=== PATIENT | female | born 1980 | race Caucasian/White ===

== ENCOUNTER 2023-02-17 08:59 | Emergency (ER) | payer OTHER, SELFPAY ==
--- NOTE | 2023-02-17 09:12 | ED.SKABFB ---
HPI - Skin/Abscess/Foreign Bdy General Chief complaint: Skin/Abscess/Foreign Body Stated complaint: cyst on rt shoulder Time Seen by Provider: 02/17/23 09:12 Source: patient Mode of arrival: ambulatory Limitations: no limitations History of Present Illness HPI narrative: Rinse he is a 42-year-old female patient presenting to clinic today with complaints of a possible cyst on her right shoulder. She reports this popped up 3 days ago. She attempted to try to drain it today day and yesterday and got some clear fluid out of it. Reports that it is red and swollen and painful at this time. No known fever or chills. Related Data Home Medications Medication Instructions Recorded Confirmed norgestimate-ethinyl estradiol 1 tablet PO DAILY 02/17/23 02/17/23 0.18 mg/0.215mg/0.25mg-35 mcg(28)tablet (Tri-Sprintec (28)) Allergies Allergy/AdvReac Type Severity Reaction Status Date / Time SEASONAL ALLERGENS AdvReac Unknown CONGESTION Uncoded 02/17/23 09:38 Review of Systems Review of Systems: Pertinent positives per HPI. Patient denies any fever, chills, rash, headache, visual changes, dizziness, cough, runny nose, sore throat, shortness of breath, chest pain, palpitations, nausea, vomiting, diarrhea, constipation, abdominal pain, or any urinary issues. PMFSH Social History Social History Smoking status: Never smoker Alcohol intake: never Comments At the time of my signature, I reviewed and agree with the nursing past medical, surgical, social, and family history. There is no relevant family history pertinent to the patient complaint. Exam Narrative: General: Well-developed, well nourished, in no apparent distress Head: Normocephalic, atraumatic. Cardio: Regular rate and rhythm, s1 and s2 normal, no murmur appreciated. Resp: Clear to auscultation bilaterally, no rhonchi, rales, wheezing or rubs. Integumentary: [place], warm, and dry, 2.5cm x2 cm indurated tender red cyst with mild fluctuance to the anterior right shoulder Course Course Emergency Course: Portions of this record may have been created with voice recognition software. Level of Care: Express Care Visit Vital Signs Vital signs: Vital signs reviewed MDM - Skin/Abscess/Foreign Bdy MDM Narrative Medical decision making narrative: At the time of visit patient is resting comfortably on the exam table. I suspect patient has an infected cyst to her right anterior shoulder. Resting benefits of incision and drainage was discussed with the patient she declines to have this done at this time. Patient would like to receive some antibiotics and see if it will go way . Reports that she had 1 of these several years ago and was given antibiotics and it went away on its own. Will place patient on Bactrim DS. Supportive measures were discussed with the patient she voiced understanding discharge instructions agrees to treatment plan. Differential Diagnosis Differential diagnosis: Likely abscess of skin or subcutaneous tissue, cellulitis, insect bites and other (Sebaceous cyst) Discharge Plan Discharge Clinical Impression: Infected cyst of shoulder Patient Disposition: Home, Self-Care Condition: Stable Instructions: Antibiotic Form, Cyst (ED) Additional Instructions: Declined incision and drainage today Start Bactrim ds 1 tablet every 12 hours times 10 days May apply warm compresses to the affected area to try to bring it to head and drain it May take Tylenol/Motrin as needed for pain Increase fluids and stay well hydrated Follow-up with your PCP in 3-5 days if symptoms persist or sooner if they worsen Go to the emergency room if you develop high fever not controlled by Tylenol/Motrin, increasing redness or swelling, confusion, weakness, lethargy, abdominal pain, chest pain, or shortness of breath Prescriptions: New sulfamethoxazole-trimethoprim [Bactrim DS] [id number]
[2023-02-17 09:28] VITALS: BP 104/74; PULSE 60; RESP 18; TEMP 36.5; O2SAT 100
== END 2023-02-17 09:43 | disposition home or self-care (01) ==
LOC: EXPTROY 09:22
PROVIDERS: Emergency Provider Nurse Practitioner Family
DX: L72.9 Follicular cyst of the skin and subcutaneous tissue, unspecified (principal)
CPT/HCPCS: 99213; G0463

== ENCOUNTER 2025-01-16 14:23 | Outpatient (CLI) | payer OTHER, SELFPAY ==
--- NOTE | ~2025-01-16 | MM_ITS ---
EXAMINATION: MM screening shubham BI w stephie HISTORY: Screening TECHNIQUE: Craniocaudal and mediolateral oblique 3-D tomosynthesis images were obtained and synthetic 2-D images were generated. CAD analysis was submitted and interpreted. COMPARISON: No prior mammogram is available for comparison at this institution. BREAST PARENCHYMAL COMPOSITION: Dense: The breasts are extremely dense, which lowers the sensitivity of mammography. FINDINGS: There are focal asymmetries posterior to the nipple on CC view, middle third. There is no mammographic evidence for malignancy in the left breast. IMPRESSION: 1. Right breast asymmetries posterior to the nipple on the CC view, middle third. 2. Additional mammographic views and possible breast ultrasound are recommended. BI-RADS Category 0: Incomplete: Needs additional imaging evaluation. Reviewed, dictated and finalized at location A. IMPRESSION: 1. Right breast asymmetries posterior to the nipple on the CC view, middle thir d. 2. Additional mammographic views and possible breast ultrasound are recommended . BI-RADS Category 0: Incomplete: Needs additional imaging evaluation.
--- OUTSIDE RECORDS SUMMARY | 2025-01-16 14:32 | XMS_ITS | Data Portability ---
Author Organization [facility] [place] Address [address] [place] [address] [address] [place] [address] Care Team Providers Care Dipper And Drier Name Role Phone DERIAN DALY Primary Care Provider Assessment Encounter Date Assessment Date Assessment LastModified by Organization Details LastModified Time 12/11/2021 12/11/2021 Annual gynecological exam performed. Patient will come back in a year unless there are new symptoms. Not available 12/11/2021 11:54:25 02/04/2023 02/04/2023 Annual gynecological exam performed. Patient will come back in a year unless there are new symptoms. [email or web address] Not available 02/04/2023 13:58:14 10/08/2024 10/08/2024 Annual gynecological exam performed. Patient will come back in a year unless there are new symptoms. [email or web address] Not available 10/06/2024 09:23:09 Plan of Treatment Reminders Order Date Submit Date Provider Last Modified By Organization Details Last Modified Time Details Appointments None recorded . Lab urinalys is, dipstick 2023 024 [email or web address] [place], [address], [place], [address], 17:21:08 Referral None recorded . Procedures None recorded . Surgeries None recorded . Imaging MAMMO, screenin g, digital, bilatera l 2024 025 [facility], [address], [address], [place], [address], 5 04:03:25 MAMMO, screenin g, bilatera l 2022 023 [email or web address] [place] [address], [address] [address], [place], [address], 3 14:40:12 Medication Orders Metrogel Vaginal 0.75 % (37.5 mg/5 gram) [address] [facility] #[id number], [address] [facility], [place], [place], [id number], 5 09:24:09 Tri-Spri ntec (28) 0.18 mg(7)/0. 215 mg(7)/0. 25 mg(7)-0. 035 mg tablet [id number] [facility]10175, [address] [place], [place], [id number], 5 14:31:39 fluconaz ole 150 mg tablet 2021 022 [facility] #98018, [address] [place], [place], [id number], 3 13:58:48 nystatin -triamci nolone 100,000 unit/gra m-0.1 % topical ointment 2021 022 [facility] #75274, [address] [place], [place], [id number], 3 13:58:50 Tri-Prev ifem (28) 0.18 mg(7)/0. 215 mg(7)/0. 25 mg(7)-35 mcg tablet [email or web address] [facility]05615, [address] [facility], [place], [place], [id number], 5 14:31:39 Patient TargetsNo targets recorded. Patient InstructionsNo instructions recorded. Reason for Referral None Reported. Results Created Date Observation Date Name Description Value Unit Range Abnormal Flag Note LastModifiedBy Organization Detail LastModifiedTime 12/12/19 22 12/11/2021 IMAGE GUIDE D PAP AND HPV REGAR DLESS image guided Pap, HPV regardless of Pap result SEE RESULT S BELOW abnormal CASE REPOR T: Cytol ogy Gynec ologi tova Repor t Case: [id number] Autho henry g Provi andi: Jered Duong MD Colle cted: 12/11 1314 Order ing Locat ion: [place] Patho logy Recei len: 12/12 0026 First Scree n: Kathrin yo, Dev ed, CT Patho logis t: Jeffry Nash MD Speci men: Scree bere Pap - Image d, Cervi x STATE MENT OF ADEQU ACY: Satis facto ry for evalu ation Trans forma tion zone compo nent prese nt FINAL DIAGN OSIS: Epith elial Cell Abnor malit y, Squam ous Cell: Atypi tova Squam ous Cells of Undet ermin ed Heleni verena ce (ASC- [place]). Elect ezequiel lucero by Jeffry Nash MD on 2021 at 1:57 PM ----- ----- ----- ----- ----- ----- ----- ----- ----- ----- ----- ----- ----- ----- ----- ----- ----- ---- HPV RESUL TS: HPV mRNA E6/E7 : No HPV mRNA Detec gaurav NOTE: This high risk HPV mRNA assay detec ts fourt een high- risk HPV types (16, 18, 31, 33, 35, 39, 45, 51, 52, 56, 58, 59, 66, 68) witho ut diffe renti ation . COMME NT: Note: This speci men was revie wed by a Cytot echno logis t and/o r Patho logis t (as indic ated in this repor t) after evalu ation using the Thinp rep Imagi ng Syste m. CLINI TOVA INFOR MATIO N: Menst rual Statu s: LMP (if appli cable ): Clini tova Histo ry/Pr eviou s Pap: Type of Neopl jerome (if appli cable ): Signi fican t Clini tova Findi ngs: Other Histo ry: Hormo mathieu (if appli cable ): SUGGE STED FOLLO W-UP: Follo w up as warra nted, based on curre nt guide lines and indiv idual patie nt consi derat ions. Not Available [facility] (Lab) [address], [place], [address], 12/21/2021 14:59:57 04/27/20 22 04/27/2022 CT/GC AND TRICH OMONA S VAGIN BAILEY (RRNA ), SWAB chlamydia trachomatis, PCR Negati ve negati ve Not Available [facility] [address] [place] [address], [id number], 05/03/2022 18:27:56 04/27/20 22 04/27/2022 CT/GC AND TRICH OMONA S VAGIN BAILEY (RRNA ), SWAB neisseria gonorrhoeae, PCR Negati ve negati ve Not Available [facility] [address] [place] [address], [id number], 05/03/2022 18:27:56 04/27/20 22 04/27/2022 CT/GC AND TRICH OMONA S VAGIN BAILEY (RRNA ), SWAB trichomonas vaginalis ribosomal RNA (rrna) Negati ve negati ve Not Available [facility] [address] [place] [address], [id number], 05/03/2022 18:27:56 04/27/20 22 04/27/2022 VAGIN ITIS/ VAGIN OSIS, DNA PROBE kalpana sp. detection, direct probe Negati ve negati ve Not Available [facility] [address] [place] [address], [id number], 05/03/2022 18:27:57 04/27/20 22 04/27/2022 VAGIN ITIS/ VAGIN OSIS, DNA PROBE gardnerella vag. detection, direct probe Negati ve negati ve Not Available [facility] [address] [place] [address], [id number], 05/03/2022 18:27:57 04/27/20 22 04/27/2022 VAGIN ITIS/ VAGIN OSIS, DNA PROBE trichomonas vag. detection, direct probe Negati ve negati ve Not Available [facility] [address] [place] [address], [id number], 05/03/2022 18:27:57 04/27/20 22 04/27/2022 CULTU RE: HERPE S SIMPL EX VIRUS (HSV) , REFLE X TYPIN G source SWAB Not Available [facility] [address] [place] [address], [id number], 05/03/2022 18:27:57 04/27/20 22 04/27/2022 CULTU RE: HERPE S SIMPL EX VIRUS (HSV) , REFLE X TYPIN G hsv culture, body fluid NOT ISOLAT ED REFER ENCE RANGE : NOT ISOLA GAURAV right labia major a Perfo rming Organ izati on Infor matio n: Site ID: [id number] Name: [facility]Justino hols [facility] , Addre ss: [id number] [place] [address] Direc tor: Rhea lundy MD,Ph D,FER Not Available [facility] [address] [place] [address], [id number], 05/03/2022 18:27:57 02/05/20 23 02/04/2023 IMAGE GUIDE D PAP AND HPV REGAR DLESS image guided Pap, HPV regardless of Pap result SEE RESULT S BELOW CASE REPOR T: Cytol ogy Gynec ologi tova Repor t Case: [id number] Autho henry brown Provi andi: Arlene Pitts, CANINE SERVICE INSTRUCTOR TRAINER Colle cted: 02/04 1453 Order ing Locat ion: [place] Patho logy Recei len: 02/08 0820 First Scree n: Magali Thompson Rescr een: Rachelle Ovalles, CT Speci men: Linsey blackburn Pap - Image d, Cervi x STATE MENT OF ADEQU ACY: Satis facto ry for evalu ation Trans forma tion zone compo nent prese nt FINAL DIAGN OSIS: Negat al for Intra epith elial Lesio n or Anayeli bennett (NIL) . Elect ezequiel [facility] d by Rachelle Ovalles, CT on 2022 at 8:42 AM ----- ----- ----- ----- ----- ----- ----- ----- ----- ----- ----- ----- ----- ----- ----- ----- ----- ---- HPV RESUL TS: HPV mRNA E6/E7 : No HPV mRNA Detec gaurav NOTE: This high risk HPV mRNA assay detec ts fourt een high- risk HPV types (16, 18, 31, 33, 35, 39, 45, 51, 52, 56, 58, 59, 66, 68) witho ut diffe renti ation . COMME NT: This speci men was revie wed by a Cytot echno logis t and/o r Patho logis t (as indic ated in this repor t) after evalu ation using the Thinp rep Imagi ng Syste m. CLINI TOVA INFOR MATIO N: Menst rual Statu s: LMP (if appli cable ): Clini tova Histo ry/Pr eviou s Pap: Type of Neopl jerome (if appli cable ): Signi fican t Clini tova Findi ngs: Other Histo ry: Hormo mathieu (if appli cable ): PAP EDUCA JULIO L NOTE: The Pap Test is a scree bere test with an inher ent false negat al rate. Liqui d-bas ed sampl ing may decre ase, but will not elimi tash, false negat al resul ts. A negat al resul t does not precl ude the prese nce and/o r devel opmen t of disea se, since the prese nce of abnor mal cells in the sampl e depen ds on the locat ion of the lesio n and sampl ing techn ique. Ashu nued regul ar scree bere is the best metho d of cance r preve ntion . If repor gaurav cytol ogic findi ng do not corre late with physi tova and/o r histo rical findi ngs, furth er inves tigat ion is recom eleanor d, as clini feng warrezio nted. Not Available [facility] (Lab) [address], [place], [address], 02/09/2023 09:45:44 02/05/20 23 02/04/2023 TRICH OMONA S VAGIN BAILEY (RRNA ) trichomonas vaginalis ribosomal RNA (rrna) Negati ve negati ve Not Available [facility] ([facility]) [address] [place], [address], 02/09/2023 09:45:44 02/05/20 23 02/04/2023 CT/GC (TOSIN) , THINP REP VIAL chlamydia trachomatis, PCR Negati ve negati ve Not Available [facility] (Lab) [address] [place], [address], 02/09/2023 09:45:45 02/05/20 23 02/04/2023 CT/GC (TOSIN) , THINP REP VIAL neisseria gonorrhoeae, PCR Negati ve negati ve Not Available [facility] (Lab) [address], [place], [address], 02/09/2023 09:45:45 03/06/20 24 03/06/2024 urina lysis , dipst ick pH 7 Not Available [place] [address], [place], [address], 03/06/2024 17:20:49 03/06/20 24 03/06/2024 urina lysis , dipst ick Specific [place] 1.000 Not Available [facility] [address], [place], [address], 03/06/2024 17:20:49 Result Notes None recorded. Problems Name Problem SNOMED Code Status Onset Date Resolution Date Notes Provider Name and Address Organization Details Recorded Time SNOMED CT Concept Completed 201711/19/2020 Encntr for sow manager exam (general) (routine) w/o abn findings; Recorded Elsewhere : No Locati on: [facility] So urce: EHR Chron ic: N Practic e ID: 0001 Bill able Time: 02:30:00 PM Melaniahelen Chun [facility] 16:48:21 Speciali zed medical examinat ion Completed 201411/19/2020 Gynecolog ical Examinati on;Record ed Elsewhere : No Locati on: [facility] So urce: EHR Chron ic: N Practic e ID: 0001 Bill able Time: 09:30:00 AM Melaniahelen Chun [facility] 16:48:[address] Concept Completed 201711/19/2020 Encntr for general adult medical exam w/o abnormal findings; Recorded Elsewhere : No Locati on: [facility] So urce: EHR Chron ic: N Practic e ID: 0001 Bill able Time: 02:30:00 PM Melania Chun [facility] 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 16:48:44 Primigra kaley [id number] Completed 201011/19/2020 Supervisi on of normal first ;Recorded Elsewhere : No Locati on: [facility] So urce: EHR Chron ic: N Practic e ID: 0001 Bill able Time: 10:15:00 AM Melania mora [facility] 16:48:31 Pregnanc y test negative [id number] Completed 201411/19/2020 examinati on or test, negative result;Re corded Elsewhere : No Locati on: [facility] So urce: EHR Chron ic: N Practic e ID: 0001 Bill able Time: 09:30:00 AM Melania mora [facility] 16:48:36 Postpart um care Completed 201111/19/2020 Routine postpartu m follow-up ;Recorded Elsewhere : No Locati on: [facility] So urce: EHR Chron ic: N Practic e ID: 0001 Bill able Time: 10:00:00 AM Melania mora [facility] 16:48:39 Malaise and fatigue [id number] Completed 201011/19/2020 Fatigue And Malaise;P [facility] ID: 0001 [facility] 16:48:47 Pregnanc y test positive [id number] Completed 201011/19/2020 Positive Test;Prac alfonso ID: 0001 [facility] 16:48:34 Screenin g for malignan t neoplasm of cervix Completed 201011/19/2020 Pap Smear;Pra ctice ID: 0001 Melaniahelen Chun [facility] 16:48:29 Single live from fazal patterson y [id number] Completed 201111/19/2020 Mother with single liveborn; Practice ID: 0001 Melaniahelen Chun [facility] 16:48:26 Poor growth affectin g manageme nt [id number] Completed 201111/19/2020 GROWTH POOR SGA;Pract ice ID: 0001 Melania [facility] 16:48:42 Vaginiti s and vulvovag initis Completed 201111/19/2020 Vaginitis and vulvovagi nitis, unspecifi ed;Practi ce ID: 0001 Melania [facility] 16:48:16 Problem Notes None recorded. Procedures Surgical History Date Name Laterality Status Provider Name and Address Organization Details Recorded Time 02/05/20 23 Date of Last Pap Smear completed Marianne Sharpe [facility] 10/06/2024 09:24:20 12/16/19 21 Colposcopy completed Josh Duong MD [address], [place], [address], [facility] 12/15/2020 21:40:44 12/16/19 21 Colposcopy completed [facility] 12/10/2021 22:59:33 12/16/19 21 Colposcopy completed [facility] 12/10/2021 23:00:48 Imaging Results None recorded. Procedure Notes None recorded. Medical Equipment None Reported. Allergies No known drug allergies Medications Name Sig Start Date Stop Date Status Note LastModified by Organization Details LastModified Time dicloxaci llin 500 mg capsule take 1 capsule (500MG) by oral route every 6 hours 1 hour before a meal or 2 hours after a meal 05/12 completed Prescrib ed Elsewher e: No Locat ion: Aylinsola aurea [facility] odify By: marisela Sparrow [facility] DateTime : 03/30/20 11:38:01 AM Not Available Not Available Not Available fluconazo le 150 mg tablet Take 1 tablet by mouth now, repeat in 7 days if symptoms persist 02/04 completed Not Available Not Available Not Available ampicilli n 500 mg capsule take 1 capsule by oral route every 12 hours 1/2 hour before a meal or 2 hours after a meal 10/19 completed Prescrib ed Elsewher e: No Locat ion: Susie villar [facility] odify By: seb Raymundoo unter DateTime : 08/16/20 08:20:43 AM Not Available Not Available Not Available metronida zole 0.75 % (37.5 mg/5 gram) vaginal gel INSERT 1 APPLICAT ORFUL VAGINALL Y EVERY DAY AT BEDTIME FOR 5 DAYS 10/06 completed Not Available Not Available Not Available penicilli n V potassium 500 mg tablet take 1 tablet by oral route 4 times a day spacing doses apart for 10 days 10/19 completed Prescrib ed Elsewher e: No Locat ion: Susie aurea [facility] odify By: seb Raymundoo unter DateTime : 07/03/20 01:21:21 PM Not Available Not Available Not Available metronida zole 500 mg tablet TAKE 1 TABLET BY MOUTH EVERY 12 HOURS FOR 7 DAYS 10/06 completed Not Available Not Available Not Available ciproflox acin 500 mg tablet TAKE 1 TABLET BY MOUTH EVERY 12 HOURS 12/11 completed Not Available Not Available Not Available sulfameth oxazole 800 mg-trimet hoprim 160 mg tablet TAKE 1 TABLET BY MOUTH EVERY 12 HOURS FOR 10 DAYS 10/06 completed Not Available Not Available Not Available amoxicill in 500 mg tablet take 1 tablet by oral route 3 times every day 11/27 completed Prescrib ed Elsewher e: No Locat ion: Susie villar [facility] odify By: sri to DateTime : 12/19/19 03:33:53 PM Not Available Not Available Not Available Macrobid 100 mg capsule take 1 capsule by oral route with intercou rse prn 10/19 completed Prescrib ed Elsewher e: No Locat ion: Susie villar [facility] odify By: seb Raymundoo unter DateTime : 08/07/20 19 09:30:00 AM Not Available Not Available Not Available Vitamin tablet take 1 tablet by oral route every day 12/07 completed Prescrib ed Elsewher e: No Locat ion: [facility] odify By: papi Encount er DateTime : 05/10/20 11 10:00:00 AM Not Available Not Available Not Available nystatin- triamcino lone 100,000 unit/gram -0.1 % topical ointment APPLY TO THE AFFECTED AREA(S) BY TOPICAL ROUTE 2 TIMES PER DAY FOR 7 DAYS 02/04 completed Not Available Not Available Not Available Duricef 500 mg capsule take 2 capsule (1G) by oral route every day 03/08 completed Prescrib ed Elsewher e: No Locat ion: Susie villar [facility] odify By: checo to DateTime : 12/16/19 12 11:15:00 AM Not Available Not Available Not Available Cleocin 2 % vaginal cream insert 1 applicat orful (100MG) by vaginal route every day at bedtime 03/08 completed Prescrib ed Elsewher e: No Locat ion: Susie villar [facility] odify By: checo to DateTime : 02/28/20 12 11:46:04 AM Not Available Not Available Not Available levofloxa pili 500 mg tablet take 1 tablet by oral route every 24 hours 11/19 completed Prescrib ed Elsewher e: No Locat ion: Susie [facility] odify By: jael Encount er DateTime : 10/24/19 20 10:06:38 AM Not Available Not Available Not Available Diflucan 200 mg tablet take 1 tablet by oral route on days 1, 4, and 7 11/19 completed Prescrib ed Elsewher e: No Locat ion: Susie villar [facility] odify By: jael Sharmat er DateTime : 10/24/19 20 10:06:38 AM Not Available Not Available Not Available Cephadyn 50 mg-650 mg tablet take 1 tablet by oral route every 4 hours as needed not to exceed 4 tablets per 24hrs 03/08 completed Prescrib ed Elsewher e: Yes Loca tion: Susie villar [facility] odify By: checo Villar ncounter DateTime : 12/24/19 12 10:00:00 AM Not Available Not Available Not Available Tri-Sprin nico (28) 0.18 mg(7)/0.2 15 mg(7)/0.2 5 mg(7)-0.0 35 mg tablet TAKE 1 TABLET BY MOUTH DAILY 10/08 completed Not Available Not Available Not Available Lo Loestrin Fe 1 mg-10 mcg (24)/10 mcg (2) tablet take 1 tablet by oral route every day 11/27 completed Prescrib ed Elsewher e: No Locat ion: Mary Grace aurea [facility] odify By: sara Son nter DateTime : 11/22/19 19 09:22:30 AM Not Available Not Available Not Available INDEPENDENT LIVING SPECIALIST-PNV-DH A 28 mg iron-1 mg-200 mg capsule take 1 capsule by oral route every day 12/07 completed Prescrib ed Elsewher e: No Locat ion: Susie villar [facility] odify By: papi Encount er DateTime : 12/07/19 13 11:30:56 AM Not Available Not Available Not Available Microgest in 24 FE 1 mg-20 mcg (24)/75 mg (4) tablet take 1 tablet by oral route every day 11/27 completed Prescrib ed Elsewher e: No Locat ion: Susie villar [facility] odify By: marybeth martin DateTime : 11/28/19 19 11:30:00 AM Not Available Not Available Not Available Vitals Date Recorded Body height Body mass index (BMI) Body weight Systolic blood pressure Diastolic blood pressure Provider Name and Address Organization Details Last Updated DateTime 12/11/2021 154.94 cm 23.4 kg/m2 79337.45 g 114 mm[Hg] 75 mm[Hg] Melania Chnu [facility] 2 12:01:37 Date Recorded Body height Body mass index (BMI) Body weight Systolic blood pressure Diastolic blood pressure Provider Name and Address Organization Details Last Updated DateTime 04/27/2022 154.94 cm 23.5 kg/m2 10300.17 g 109 mm[Hg] 72 mm[Hg] Genie Santos [facility] 2 17:14:20 Date Recorded Body height Body mass index (BMI) Body weight Systolic blood pressure Diastolic blood pressure Provider Name and Address Organization Details Last Updated DateTime 02/04/2023 154.94 cm 23.7 kg/m2 69005.48 g 108 mm[Hg] 64 mm[Hg] Genie Santos [facility] 3 13:58:34 Date Recorded Body weight Systolic blood pressure Diastolic blood pressure Provider Name and Address Organization Details Last Updated DateTime 10/08/2024 62459.26 g 121 mm[Hg] 78 mm[Hg] Marianne Sharpe [facility] 10/08/2024 14:31:26 Social History Question Answer Notes LastModified by Organizat ion Details LastModified Time Tobacco Smoking Status Never Smoker Genie Santos [facility] 02/04/2023 13:58:41 Do You Have An Advance Directive? No Information n ot available 11/19/2020 What Is Your Level Of Alcohol Consumption? Occasional Information not available 11/19/2020 How Many Years Have You Consumed Alcohol? 5 Information not available 11/19/2020 Are You Blind Or Do You Have Difficulty Seeing? No Information n ot available 11/19/2020 What Is Your Level Of Caffeine Consumption? Moderate Information not available 02/04/2023 How Much Tobacco Do You Chew? None Information not available 11/19/2020 In The 14 Days Before Symptom Onset, Have You Had Close Contact With A Laboratory-confirm ed COVID-19 While That Case Was Ill? No Information n ot available 11/19/2020 In The 14 Days Before Symptom Onset, Have You Had Close Contact With A Person Who Is Under Investigation For COVID-19 While That Person Was Ill? No Information not available 11/19/2020 Have You Been To An Area Known To Be High Risk For COVID-19? No Information not available 11/19/2020 Are You Deaf Or Do You Have Serious Difficulty Hearing? No Information not available 11/19/2020 What Type Of Diet Are You Following? REGULAR Information n ot available 11/19/2020 What Is The Highest Grade Or Level Of School You Have Completed Or The Highest Degree You Have Received? 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 No Information not available 11/19/2020 Do You Use Protection During Sex? Usually Information not available 11/19/2020 Do You Use Your Seat Belt Or Car Seat Routinely? Yes Information not available 11/19/2020 Do You Have Smoke And Carbon Monoxide Detectors In Your Home? Yes Information not available 11/19/2020 How Much Tobacco Do You Smoke? No Information not available 11/19/2020 Do You Feel Stressed (tense, Restless, Nervous, Or Anxious, Or Unable To Sleep At Night)? [id number] Information not available 11/19/2020 Do You Use Any Illicit Or Recreational Drugs? No Information not available 11/19/2020 Do You Use Sunscreen Routinely? Yes Information not available 11/19/2020 How Many Years Have You Smoked Tobacco? 0 Information not available 11/19/2020 Have You Used IV Drugs? No Information not available 11/19/2020 Sex: Unknown Functional Status Question Answer Note LastModified by Organizat ion Details LastModified Time Do you have difficulty walking or climbing stairs? No Information not available 02/04/2023 Are you able to walk? YESWOREST Information not available 11/19/2020 Are you able to care for yourself? Yes Information not available 02/04/2023 Do you have difficulty dressing or bathing? No Information not available 02/04/2023 What is your exercise level? Occasional Information not available 11/19/2020 Mental Status None recorded. Family History Relationship Description Onset Age of this Age Resolved Age Notes LastModified by Organization Details LastModified Time Mother Asthma [email or web address] Not available 02/04/2023 13:47:34 Unspecified Relation Malignant tumor of breast Not available 2020 16:47:39 Maternal Grandfather Malignant neoplasm of lung Not available 2020 18:49:54 Maternal Grandmother Malignant neoplasm of lung Not available 2020 18:50:12 Maternal Grandmother Malignant neoplasm of liver [email or web address] Not available 2024 14:26:11 Father Neoplasm of brain Not available 2024 14:33:59 Father Leukemia [email or web address] Not availabl e 10/08/2024 14:34:14 Medical History Condition Response History of abnormal pap Y Gynecological History Statement/Question Response Flow Light Date of LMP 09/16/2024 N Was last menstrual period normal Y STIs/STDs Y Date of control 11/10/2020 BCPs Desired Control Method BCPs Abnormal Pap Yes On BCP's at Conception? N HPV Vaccine Y Colposcopy 12/15/2020 Duration of Flow (days) 5 Current Control Method BCPs Age at First Child 32 Frequency of Cycle (Q days) 32 Sexually Active? Y Menses Monthly Y Age of first menstrual cycle 13 Date of Last Pap Smear 02/04/2023 Sexual Problems? N LMP Definite N Obstetrics History GPAL:G 1 P 1 0 0 1 Type Value Full Term 1 Living 1 Total 1 Past Encounters Encounter ID Performer Location Encounter Start Date Encounter Closed Date Diagnosis/Indication Diagnosis SNOMED-CT Code Diagnosis ICD10 Code Diagnosis Note [id number] Josh Duong MD [facility] [address],[place] [address] 11/19/2020 16:26:47 11/20/2020 09:03:35 Gynecologic examination [id number] Z01.419 This patient is here for her annual exam. A thorough history was taken. A physical exam was performed. Age appropriat e routine health screening was ordered, performed, and discussed. Recommende d testing was ordered. She was asked to follow up in one year. She will be informed of any test results. [id number] Josh Duong MD [facility] [address],[place] [address] 12/15/2020 14:47:10 12/16/2020 00:14:48 Screening procedure [id number] Z13.9 Dysplasia of cervix 7339 1008 N87.9 colposcopy completed, aceto-whit e area, small, biopsied [id number] Josh Duong MD [facility] [address],[place] [address] 12/11/2021 11:51:21 12/11/2021 12:23:29 Gynecologic examination [id number] Z01.419 This patient is here for her annual exam. A thorough history was taken. A physical exam was performed. Age appropriat e routine health screening was ordered, performed, and discussed. Recommende d testing was ordered. She was asked to follow up in one year. She will be informed of any test results. Declined any lab testing today. Has history LGSIL/ PILI 1 Contracept ion care management [id number] Z30.9 [id number] Josh Duong MD [facility] [address],[place] [address] 05/20/2021 17:22:41 05/21/2021 10:46:36 Urinary tract infectious disease 40598145 N39.0 [id number] MARGARET Vuong [facility] [address],[place] [address] 04/27/2022 17:00:23 05/03/2022 16:42:20 Vaginitis 49639534 N76.0 Suspect yeast on examVagini tis panel sentVulvar care guidelines discussed in-depth-s leep with no underwear, cotton underwear only-avoid all vaginal washes/pro ducts, only water/fing ers to cleanse the vulva-Free and clear laundry products-a void shaving and waxing Rx for yeastRTC if symptoms persist Time spent in visit is a total of 35 mins with at least 50% of visit consisting of counseling and review of plan of care.We spent an extensive amount of time discussing vulvar care guidelines Lesion of vulva [id number] 6 N90.89 suspect irritation from scratching [id number] MARGARET Chaudhary-[facility] [address] [address] 02/04/2023 13:47:31 02/04/2023 14:40:11 Gynecologic examination 10045620 Z01.419 Suggested Calcium with Vitamin D 1200-1500m g daily. Patient advised to get an annual flu shot in the fall and she could obtain at [facility] or [facility]. Also to obtain TDap vaccinatio n if you have not had one in the last 10 years. Recommend yearly mammograms . Encouraged monthly self breast exams. Encourage safe sexual practices, to use condoms and limit partners if not already in a monogamous relationsh ip. Engage in daily exercise of low impact aerobic exercise 45-60 minutes 4-5 times weekly. Avoid tobacco and illicit drugs as well as using moderation with alcohol intake less than 1-2 8 oz beverages daily. This lifestyle behavior pattern will lead to less health conditions and longer life span. If BMI greater than 25 weight watchers or dietary consult advised. All questions have been answered. Patient appears to understand informatio n, but if you have any questions please call or respond to this email. Pap/hpv sentSTD Screen sentGeneti c Screen discussedC olon Screen naDexa Screen naRoutine Labs PCPMammo ordered Screening mammography 24 376058 Z12.31 Contracept ion care management 235303551 Z30.9 RF sent x 1yrSpouse considerin g vasectomyP atient considerin g tubal ligationWi ll call if interested in consult [id number] JAY TORRES MD [facility] [address] [address] 03/06/2024 16:56:21 03/06/2024 17:21:39 Vaginitis 48219320 N76.0 Urinary symptoms 3806912 08 R39.9 [id number] Josh Duong MD [facility] [address] [address] 10/08/2024 14:24:11 10/08/2024 15:34:22 Gynecologic examination 10088639 Z01.419 Annual gynecologi tova exam performed. Patient will come back in a year unless there are new symptoms. Suggest Calcium with Vitamin D if not eating in diet. Patient advised to get annual flu shot. Recommend yearly physicals and perform monthly breast exams. Genetic testing is available for patients with family history of cancer. Engage in safe sexual practices, use condoms. Encouraged to have daily exercise. Avoid tobacco and illicit drugs, moderation of alcohol. If BMI greater than 25 dietary consult advised. If you have any questions please call or email. mammogram- DUE for 1st mammogram; order given, pt to schedule colon cancer screening - n/a DEXA scan- n/a Pap smear- UTD (2022 - WN), will repeat in 2025 per ASCCP guidelines laboratory evaluation - declined STI testing - declined Pt declined - had vasectomy Screening mammography 24 241688 Z12.31 Health Concerns Section Related Observation LastModified by Organization Detai ls LastModified Time None Recorded Concern Status LastModified by Organization Details LastModified Time None Recorded Advance Directives Directive N: Payers Encounter Date Sequence Insurance Name Policy Number Policy Ledbetter Covered Member ID Ledbetter Member ID Guarantor Name 12/11/2021 1 [place] [id number] David Jeffrey [id number] Siomara Jeffrey 04/27/2022 1 [place] [id number] David Jeffrey [id number] Siomara Jeffrey 02/04/2023 1 [employer] - CHOICE (POS II) [id number] David Jeffrey [id number] Siomara Jeffrey 03/06/2024 1 [employer] - OPEN ACCESS PLUS [id number] Esvin Jeffrey [id number] Siomara Jeffrey 10/08/2024 1 [facility] [id number] Esvin Jeffrey [id number] Siomara Jeffrey Notes Date Note Type Note Provider Name and Address Organization Details Recorded Time 12/11/2021 text/html Annual GYNReport ed bypatient.History:no gynecologic complaints Menstrual cycle:Normal menses Urinary symptoms:No hematuria; No incontinence Vulva:No genital lesion Vagina:Normal vaginal discharge Breast:No breast pain; No breast lump; No nipple discharge Current Contraception:Oral contraceptives Sexual complaints:No sexual complaints; No pain during intercourse Psychological symptoms:No depression; No anxiety Preventive measures:Encourage self breast examination; Encourage regular exercise Josh Duong MD [address], [place], [address], [facility] 12/11/2021 12:22:55 04/27/2022 text/html Vulvar itching a nd irritation x 1 weekNo vaginal discharge or odorsNo AUB MARGARET Vuong [address], [place], [address], [facility] 05/03/2022 11:53:16 02/04/2023 text/html Annual GYNReport ed bypatient.Menstrual cycle:Normal menses Urinary symptoms:No hematuria; No incontinence Vulva:No genital lesion Vagina:Normal vaginal discharge Breast:No breast pain; No breast lump; No nipple discharge Current Contraception:Satisf ied with current contraception; Oral contraceptives Sexual complaints:No sexual complaints; No pain during intercourse; Normal libido Menopausal Symptoms:No menopausal symptoms; Normal vaginal lubrication Psychological symptoms:No depression; No anxiety; No PMDD Preventive measures:Encourage self breast examination; Encourage regular exercise; Encourage no tobacco use; Encourage regular mammograms starting age 40; History of abnormal pap smear/cervical dysplasia; Needs to schedule mammogram MARGARET Chaudhary- [address], [place], [address], [facility] 02/04/2023 14:26:52 10/08/2024 text/html Annual GYNReport ed bypatient.History:no gynecologic complaints Menstrual cycle:Normal menses Urinary symptoms:No hematuria; No incontinence Vulva:No genital lesion Vagina:Normal vaginal discharge Breast:No breast pain; No breast lump; No nipple discharge Current Contraception:Partne r had vasectomy Sexual complaints:No sexual complaints; No pain during intercourse; Normal libido Menopausal Symptoms:No menopausal symptoms; Normal vaginal lubrication Psychological symptoms:No depression; No anxiety; No PMDD Preventive measures:Encourage self breast examination; Encourage regular exercise; Encourage no tobacco use; Encourage regular mammograms starting age 40 Patient presents for annual well woman exam. Patient denies concerns today. Patient stopped BC pills 4 months ago since had vasectomy. ASHLEY PHILLIPS, [place] [address], [place], [address], [facility] 10/08/2024 15:12:41 OBGyn Episode Ob Episode Information Episode Created Date Number of Fetuses Patient Bloodtype Patient rh Status Prepregnancy Weight lbs Domestic Partner Domestic Partner Phone Father Name Laboratory Scientist Status 11/20/19 21 1 CLOSED Fetus Data First Name Last Name Admitted to NICU Weight (g) Sex Living Outcome Pediatric Complications Fetus ID Race Codes Race Delivery Type 3288.54 2 M Full Term 8400 Vaginal Delivery Simón Calculation Initial Simón Date Initial Exam Date Initial Exam Provider Initial Ultrasound Date Last Menstrual Period Date Ultra Sound Weeks Gestation 0 Eighteen To Twenty Week Simón Update Ultra Sound Date Fundal Height At Umbil Quickening Date Ultra Sound Latest Weeks Gestation Final Simón Confirmed By Final Simón Confirmed Date Final Simón Date Ultra Sound Latest Days Gestation 0 0 Menstrual History Last Menstrual Date Menses Monthly On Bcp Conception Prior Menses Frequency Hcg Plus Date Menarche Onset Age Delivery Information Delivery Date Delivery Type Labor Anesthesia Weeks Gestation Incision Type Labor Labor Length Hrs Delivered By Post Complications Tubal Sterilization Discharge Date Comments 2 38.1 [facility] Discharge Information Feeding Method Contraceptive Method Maternal HG B and HCT Levels
== END 2025-01-16 14:24 | disposition home or self-care (01) ==
LOC: ANHIMG 14:26
PROVIDERS: PCP Family Medicine; Visit Provider Obstetrics & Gynecology
DX: Z12.31 Encounter for screening mammogram for malignant neoplasm of breast (principal); R92.8 Other abnormal and inconclusive findings on diagnostic imaging of breast
CPT/HCPCS: 77063; 77067

== ENCOUNTER 2025-01-28 10:45 | Outpatient (CLI) | payer OTHER, SELFPAY ==
--- OUTSIDE RECORDS SUMMARY | 2025-01-28 11:16 | XMS_ITS | Data Portability ---
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 [email or web address] Not available 10/06/2024 09:23:09 Plan of Treatment Reminders Order Date Submit Date Provider Last Modified By Organization Details Last Modified Time Details Appointments None recorded . Lab urinalys is, dipstick 2023 024 [email or web address] [facility], [address], [place], [address], 17:21:08 Referral None recorded . Procedures None recorded . Surgeries None recorded . Imaging MAMMO, screenin g, digital, bilatera l 2024 025 [facility], [address], [address], [place], [address], 5 21:46:43 MAMMO, screenin g, bilatera l 2022 023 [email or web address] [facility] [address], [address] [address], [place], [address], 14:40:12 Medication Orders Metrogel Vaginal 0.75 % (37.5 mg/5 gram) [address] [facility][id number], [address], [place], [place], [id number], 5 09:24:09 Tri-Spri ntec (28) 0.18 mg(7)/0. 215 mg(7)/0. 25 mg(7)-0. 035 mg tablet [email or web address] [facility] [address] [facility]15665, [address], [place], [id number], 5 14:31:39 fluconaz ole 150 mg tablet 2021 022 [facility] #96824, [address], [place], [id number], 3 13:58:48 nystatin -triamci nolone 100,000 unit/gra m-0.1 % topical ointment 2021 [facility] #91182, [address], [place], [id number], 3 13:58:50 Tri-Prev ifem (28) 0.18 mg(7)/0. 215 mg(7)/0. 25 mg(7)-35 mcg tablet [email or web address] [facility] [address] [facility]87901, [address], [place], [id number], 5 14:31:39 Patient TargetsNo targets recorded. Patient InstructionsNo instructions recorded. Reason for Referral None Reported. Results Created Date Observation Date Name Description Value Unit Range Abnormal Flag Note LastModifiedBy Organization Detail LastModifiedTime 12/12/19 22 12/11/2021 IMAGE GUIDE D PAP AND HPV REGAR DLESS image guided Pap, HPV regardless of Pap result SEE RESULT S BELOW abnormal CASE REPOR T: Cytol ogy Gynec ologi nyla Repor t Case: [id number] Autho henry g Provi andi: Jered Duong MD Colle cted: 12/11 1314 Order ing Locat ion: [place] [facility] Recei len: 12/12 0026 First Scree n: Kathrin ni, Dev ed, CT Patho logis t: Jeffry Nash MD Speci men: Scree bere Pap - Image d, Cervi x STATE MENT OF ADEQU ACY: Satis facto ry for evalu ation Trans forma tion zone compo nent prese nt FINAL DIAGN OSIS: Epith elial Cell Abnor malit y, Squam ous Cell: Atypi nyla Squam ous Cells of Undet ermin ed Heleni verena weaver (ASC- [place]). Elect ezequiel lucero by Jeffry Nash MD on 2021 at 1:57 PM ----- ----- ----- ----- ----- ----- ----- ----- ----- ----- ----- ----- ----- ----- ----- ----- ----- ---- HPV RESUL TS: HPV mRNA E6/E7 : No HPV mRNA Detec lena NOTE: This high risk HPV mRNA assay [...] Thinp rep Imagi ng Syste m. CLINI NYLA INFOR MATIO N: Menst rual Statu s: LMP (if appli cable ): Clini nyla Histo ry/Pr eviou s Pap: Type of Neopl jerome (if appli cable ): Signi fican t Clini nyla Findi ngs: Other Histo ry: Hormo mathieu (if appli cable ): SUGGE STED FOLLO W-UP: Follo w up as warra nted, based on curre nt guide lines and indiv idual patie nt consi derat ions. Not Available [facility] (Lab) [address], [place], [address], 12/21/2021 14:59:57 04/27/20 22 04/27/2022 CT/GC AND TRICH OMONA S VAGIN BAILEY (RRNA ), SWAB chlamydia trachomatis, PCR Negati ve negati ve Not Available [facility] [address] [place] [address], [phone], 05/03/2022 18:27:56 04/27/20 22 04/27/2022 CT/GC AND TRICH OMONA S VAGIN BAILEY (RRNA ), SWAB neisseria gonorrhoeae, PCR Negati ve negati ve Not Available [facility] [address] [place] [address], [phone], 05/03/2022 18:27:56 04/27/20 22 04/27/2022 CT/GC AND TRICH OMONA S VAGIN BAILEY (RRNA ), SWAB trichomonas vaginalis ribosomal RNA (rrna) Negati ve negati ve Not Available [facility] [address] [place] [address], [address], 05/03/2022 18:27:56 04/27/20 22 04/27/2022 VAGIN ITIS/ VAGIN OSIS, DNA PROBE kalpana sp. detection, direct probe Negati ve negati ve Not Available [facility] [address] [place], [address], 05/03/2022 18:27:57 04/27/20 22 04/27/2022 VAGIN ITIS/ VAGIN OSIS, DNA PROBE gardnerella vag. detection, direct probe Negati ve negati ve Not Available [facility] [address] [place], [address], 05/03/2022 18:27:57 04/27/20 22 04/27/2022 VAGIN ITIS/ VAGIN OSIS, DNA PROBE trichomonas vag. detection, direct probe Negati ve negati ve Not Available [facility] [address] [place] [address], [address], 05/03/2022 18:27:57 04/27/20 22 04/27/2022 CULTU RE: HERPE S SIMPL EX VIRUS (HSV) , REFLE X TYPIN G source SWAB Not Available [facility] [address] [place], [address], 05/03/2022 18:27:57 04/27/20 22 04/27/2022 CULTU RE: HERPE S SIMPL EX VIRUS (HSV) , REFLE X TYPIN G hsv culture, body fluid NOT ISOLAT ED REFER ENCE RANGE : NOT ISOLA LENA right labia major a Perfo rming Organ izati on Infor matio n: Site ID: [id number] Name: [facility]Justino hols [facility] , Addre ss: [address] [place] [address] Direc tor: Rhea lundy MD,Ph D,FER Not Available [facility] [address] [place] [address], [address], 05/03/2022 18:27:57 02/05/20 23 02/04/2023 IMAGE GUIDE D PAP AND HPV REGAR DLESS image guided Pap, HPV regardless of Pap result SEE RESULT S BELOW CASE REPOR T: Cytol ogy Gynec ologi nyla Repor t Case: [id number] Autho henry brown Provi andi: Arlene Pitts, WAYNE Colle cted: 02/04 1453 Order ing Locat [...] mRNA E6/E7 : No HPV mRNA Detec lena NOTE: This high risk HPV mRNA assay [...] Thinp rep Imagi ng Syste m. CLINI NYLA INFOR MATIO N: Menst rual Statu s: LMP (if appli cable ): Clini nyla Histo ry/Pr eviou s Pap: Type of Neopl jerome (if appli cable ): Signi fican t Clini nyla Findi ngs: Other Histo ry: Hormo mathieu [...] cance r preve ntion . If repor lena cytol ogic findi ng do not corre late with physi nyla and/o r histo rical findi ngs, furth er inves tigat ion is recom eleanor d, as clini feng warrezio nted. Not Available [facility] (Lab) [address], [place], [address], 02/09/2023 09:45:44 02/05/20 23 02/04/2023 TRICH OMONA S VAGIN BAILEY (RRNA ) trichomonas vaginalis ribosomal RNA (rrna) Negati ve negati ve Not Available [facility] (Lab) [address], [place], [address], 02/09/2023 09:45:44 02/05/20 23 02/04/2023 CT/GC (TOSIN) , THINP REP VIAL chlamydia trachomatis, PCR Negati ve negati ve Not Available [facility] (Lab) [address], [place], [address], 02/09/2023 09:45:45 02/05/20 23 02/04/2023 CT/GC (TOSIN) , THINP REP VIAL neisseria gonorrhoeae, PCR Negati ve negati ve Not Available [facility] (Lab) [address], [place], [address], 02/09/2023 09:45:45 03/06/20 24 03/06/2024 urina lysis , dipst ick pH 7 Not Available [facility] [address], [place], [address], 03/06/2024 17:20:49 03/06/20 24 03/06/2024 urina lysis , dipst ick Specific Maple 1.000 Not Available [facility] [place] [facility] [address], [place], [address], 03/06/2024 17:20:49 01/17/20 25 01/16/2025 MAMMO , scree bere, digit al, bilat eral No observ ation record ed. [email or web address] [facility] [address], [place], [address], 01/18/2025 10:32:28 01/18/20 25 01/16/2025 MAMMO , scree bere, digit al, bilat eral No observ ation record ed. [email or web address] [facility] [address], [place], [address], 01/21/2025 10:54:05 Result Notes None recorded. Problems Name Problem SNOMED Code Status Onset Date Resolution Date Notes Provider Name and Address Organization Details Recorded Time SNOMED CT Concept Completed 201711/19/2020 Encntr for utilization review rn exam (general) (routine) w/o abn findings; Recorded Elsewhere : No Locati on: [facility] So urce: EHR Chron ic: N Practic e ID: 0001 Bill able Time: 02:30:00 PM Melania mora MS - [facility] 16:48:21 Speciali zed medical examinat ion Completed 201411/19/2020 Gynecolog ical Examinati on;Record ed Elsewhere : No Locati on: [facility] So urce: EHR Chron ic: N Practic e ID: 0001 Bill able Time: 09:30:00 AM Melania mora [facility] 16:48:[address] Concept Completed 201711/19/2020 Encntr for general adult medical exam w/o abnormal findings; Recorded Elsewhere : No Locati on: [facility] So urce: EHR Chron ic: N Practic e ID: 0001 Bill able Time: 02:30:00 PM Melania mora [facility] 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 16:48:44 Primigra kaley [id number] Completed 201011/19/2020 Supervisi on of normal first ;Recorded Elsewhere : No Locati on: [facility] So urce: EHR Chron ic: N Practic e ID: 0001 Bill able Time: 10:15:00 AM Melania mora [facility] 16:48:31 Pregnanc y test negative [id number] Completed 201411/19/2020 examinati on or test, negative result;Re corded Elsewhere : No Locati on: [facility] So urce: EHR Chron ic: N Practic e ID: 0001 Bill able Time: 09:30:00 AM Melania mora [facility] 16:48:36 Postpart um care Completed 201111/19/2020 Routine postpartu m follow-up ;Recorded Elsewhere : No Locati on: [facility] So urce: EHR Chron ic: N Practic e ID: 0001 Bill able Time: 10:00:00 AM [facility] 16:48:39 Malaise and fatigue [id number] Completed 201011/19/2020 Fatigue And Malaise;P ractice ID: 0001 [facility] 16:48:47 Pregnanc y test positive [id number] Completed 201011/19/2020 Positive Test;Prac alfonso ID: 0001 Melania Chun [facility] 16:48:34 Screenin g for malignan t neoplasm of cervix Completed 201011/19/2020 Pap Smear;Pra ctice ID: 0001 Melania Chun [facility] 16:48:29 Single live from singleto n pregnanc y [id number] Completed 201111/19/2020 Mother with single liveborn; Practice ID: 0001 Melania Chun [facility] 16:48:26 Poor growth affectin g manageme nt [id number] Completed 201111/19/2020 GROWTH POOR SGA;Pract ice ID: 0001 Melania Chun [facility] 16:48:42 Vaginiti s and vulvovag initis Completed 201111/19/2020 Vaginitis and vulvovagi nitis, unspecifi ed;Practi ce ID: 0001 Melania Chun [facility] 16:48:16 Problem Notes None recorded. Procedures Surgical History Date Name Laterality Status Provider Name and Address Organization Details Recorded Time 02/05/20 23 Date of Last Pap Smear completed Marianne Sharpe [facility] 10/06/2024 09:24:20 12/16/19 21 Colposcopy completed Josh Duong MD [address], [place], [address], [facility] 12/15/2020 21:40:44 12/16/19 21 Colposcopy completed Melania [facility] 12/10/2021 22:59:33 12/16/19 21 Colposcopy completed Melania [facility] 12/10/2021 23:00:48 Imaging Results Imaging Date Name Status LastModified by Organiz ation Details LastModified Time 01/16/2025 MAMMO, screening, digital, bilateral completed [email or web address] [facility] [address], [place], [address], 01/18/2025 10:32:28 01/16/2025 MAMMO, screening, digital, bilateral completed [email or web address] [facility] [address], [place], [address], 01/21/2025 10:54:05 Procedure Notes None recorded. Medical Equipment None [...] ed Elsewher e: No Locat ion: [facility] Tom odify By: marisela Encount er DateTime : 03/30/20 12 11:38:01 AM Not Available Not Available Not [...] Elsewher e: No Locat ion: Susie villar [facility] Tom odify By: seb zhou Enco unter DateTime : 08/16/20 08:20:43 AM Not [...] Prescrib ed Elsewher e: No Locat ion: Ayl[facility]inedumaddie villar [facility] odify By: seb ich Enco unter DateTime : 07/03/20 01:21:21 PM Not [...] Elsewher e: No Locat ion: Susie villar [facility] odify By: sri Villar ncounter DateTime : 12/19/19 15 03:33:53 PM Not Available Not Available Not Available Macrobid 100 mg capsule take 1 capsule by oral route with intercou rse prn 10/19 completed Prescrib ed Elsewher e: No Locat ion: [facility] odify By: seb ich Enco unter DateTime : 08/07/20 19 09:30:00 AM Not Available Not Available Not Available Vitamin tablet take 1 tablet by oral route every day 12/07 completed Prescrib ed Elsewher e: No Locat ion: [facility] odify By: cmedical Encount er DateTime : 05/10/20 11 10:00:00 [...] Prescrib ed Elsewher e: No Locat ion: [facility] odify By: checo to DateTime : 12/16/19 12 11:15:00 AM Not Available Not Available Not Available Cleocin 2 % vaginal cream insert 1 applicat orful (100MG) by vaginal route every day at bedtime 03/08 completed Prescrib ed Elsewher e: No Locat ion: [facility] odify By: checo to DateTime : 02/28/20 12 11:46:04 AM Not Available Not Available Not Available levofloxa pili 500 mg tablet take 1 tablet by oral route every 24 hours 11/19 completed Prescrib ed Elsewher e: No Locat ion: [facility] odify By: jael Carney er DateTime : 10/24/19 10:06:38 AM Not Available Not Available Not Available Diflucan 200 mg tablet take 1 tablet by oral route on days 1, 4, and 7 11/19 completed Prescrib ed Elsewher e: No Locat ion: [facility] odify By: jael Carney er DateTime : 10/24/19 10:06:38 AM Not Available Not Available Not Available Cephadyn 50 mg-650 mg tablet take 1 tablet by oral route every 4 hours as needed not to exceed 4 tablets per 24hrs 03/08 completed Prescrib ed Elsewher e: Yes Loca tion: [facility] odify By: checo to DateTime : 12/24/19 12 10:00:00 AM Not [...] Prescrib ed Elsewher e: No Locat ion: [facility] odify By: erichar tz Encou nter DateTime : 11/22/19 19 09:22:30 AM Not Available Not Available Not Available [employer]ANT-PNV-DH A 28 mg iron-1 mg-200 mg capsule take 1 capsule by oral route every day 12/07 completed Prescrib ed Elsewher e: No Locat ion: [facility] odify By: papi Carney er DateTime : 12/07/19 13 11:30:56 AM Not Available Not Available Not Available Microgest in 24 FE 1 mg-20 mcg (24)/75 mg (4) tablet take 1 tablet by oral route every day 11/27 completed Prescrib ed Elsewher e: No Locat ion: [facility] odify By: marybeth martin DateTime : 11/28/19 19 11:30:00 AM Not Available Not Available Not Available Vitals Date Recorded Body height Body mass index (BMI) Body weight Systolic blood pressure Diastolic blood pressure Provider Name and Address Organization Details Last Updated DateTime 12/11/2021 154.94 cm 23.4 kg/m2 56857.45 g 114 mm[Hg] 75 mm[Hg] Melania Chun [facility] 2 12:01:37 Date Recorded Body height Body mass index (BMI) Body weight Systolic blood pressure Diastolic blood pressure Provider Name and Address Organization Details Last Updated DateTime 04/27/2022 154.94 cm 23.5 kg/m2 93703.17 g 109 mm[Hg] 72 mm[Hg] Genie Santos [facility] 2 17:14:20 Date Recorded Body height Body mass index (BMI) Body weight Systolic blood pressure Diastolic blood pressure Provider Name and Address Organization Details Last Updated DateTime 02/04/2023 154.94 cm 23.7 kg/m2 40999.48 g 108 mm[Hg] 64 mm[Hg] Genie Santos [facility] 13:58:34 Date Recorded Body weight Systolic blood pressure Diastolic blood pressure Provider Name and Address Organization Details Last Updated DateTime 10/08/2024 39153.26 g 121 mm[Hg] 78 mm[Hg] Marianne Sharpe [facility] 10/08/2024 14:31:26 Social History Question Answer Notes LastModified by Organizat ion Details LastModified Time Tobacco Smoking Status Never Smoker Genie mora, [facility] 02/04/2023 13:58:41 Do You Have An Advance Directive? No Information n ot available 11/19/2020 How Many Years Have You [...] Or The Highest Degree You Have Received? [id number] Information not available 11/19/2020 Are There Any [...] IV Drugs? No Information not available 11/19/2020 Do You Have Difficulty Walking Or Climbing Stairs? No Information not available 02/04/2023 Sex: Unknown Functional Status Question Answer Note LastModified by Organizat ion Details LastModified Time Do you use any illicit or recreational drugs? No Information not available 11/19/2020 What is your level of alcohol consumption? Occasional Information not available 11/19/2020 Are you able to walk? YESWOREST Information not available 11/19/2020 Are you able to care for yourself? 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 No Information not available 02/04/2023 What is your exercise level? Occasional Information not available 11/19/2020 Mental Status Question Answer Note LastModified by Organization D etails LastModified Time Do you feel stressed (tense, restless, nervous, or anxious, or unable to sleep at night)? [id number] Information not available 11/19/2020 Family History Relationship Description Onset Age of this Age Resolved Age Notes LastModified by Organization Details LastModified Time Mother Asthma [email or web address] Not available 02/04/2023 13:47:34 Unspecified Relation Malignant tumor of breast Not available 2020 16:47:39 Maternal Grandfather Malignant neoplasm of lung Not available 2020 18:49:54 Maternal Grandmother Malignant neoplasm of lung Not available 2020 18:50:12 Maternal Grandmother Malignant neoplasm of liver Not available 2024 14:26:11 Father Neoplasm of brain [email or web address] Not available 2024 14:33:59 Father Leukemia Not availabl e 10/08/2024 14:34:14 Medical History [...] SNOMED-CT Code Diagnosis ICD10 Code Diagnosis Note [id number] Josh Duong MD [facility] [address] [address] 11/19/2020 16:26:47 11/20/2020 09:03:35 Gynecologic examination [id number] Z01.419 This patient is here for her annual exam. A thorough history was taken. A physical exam was performed. Age appropriat e routine health screening was ordered, performed, and discussed. Recommende d testing was ordered. She was asked to follow up in one year. She will be informed of any test results. [id number] Josh Duong MD [facility] [address] [address] 12/15/2020 14:47:10 12/16/2020 00:14:48 Screening procedure [id number] Z13.9 Dysplasia of cervix 7339 1008 N87.9 colposcopy completed, aceto-whit e area, small, biopsied [id number] Josh Duong MD [facility] [address] [address] 12/11/2021 11:51:21 12/11/2021 12:23:29 Gynecologic examination 09138472 Z01.419 This patient is here for her annual exam. A thorough history was taken. A physical exam was performed. Age appropriat e rou [id number]||2025-01-28 11:29:00|MMUS_ITS|BURKT|Imaging|[id number]|"EXAMINATION: MM diagnostic shubham RT w stephie, US breast RT complete HISTORY: Follow-up right breast asymmetry TECHNIQUE: Additional 3-D tomosynthesis images of the right breast were performed and synthetic 2-D i mages were generated. CAD analysis was submitted and interpreted. High resolution complete right jonathan st ultrasound was performed. COMPARISON: 01/16/2025 BREAST PARENCHYMAL COMPOSITION: Dense: The breasts are heterogeneously dense, which may obscure small masses FINDINGS: MAMMOGRAPHIC FINDINGS: There are no suspicious masses, calcifications or architectural distortion with spot compression and mediolateral views. ULTRASOUND: Complete US of all 4 quadrants of the right breast/s and retroareolar region was reviewed. Normal het erogeneous echotexture without focal mass. IMPRESSION: 1. No evidence for malignancy in the right breast. 2. Routine yearly screening mammogram and regular clinical breast examination are recommended. BI-RADS Category 1: Negative Reviewed, dictated and finalized at location B. IMPRESSION: 1. No evidence for malignancy in the right breast. 2. Routine yearly screening mammogram and regular clinical breast examination a re recommended. BI-RADS Category 1: Negative IMPRESSION: 1. No evidence for malignancy in the right breast. 2. Routine yearly screening mammogram and regular clinical breast examination a re recommended. BI-RADS Category 1: Negative "
== END 2025-01-28 10:46 | disposition home or self-care (01) ==
LOC: ANHIMG 10:47
PROVIDERS: PCP Family Medicine; Visit Provider Student in an Organized Health Care Education/Training Program
DX: R92.2 Inconclusive mammogram (principal)
CPT/HCPCS: 76641; 77061; 77065; G0279

== ENCOUNTER 2025-01-30 15:40 | Outpatient (CLI) | payer OTHER, SELFPAY ==
--- NOTE | ~2025-01-30 | XR_ITS ---
XR abdomen/kub 1V Ordering provider: Destin Beltrán PA-C History: . R10.9 - Unspecified abdominal pain . Comparison: None. FINDINGS: BOWEL: Nonobstructive bowel gas pattern. ORGANOMEGALY: None. SIGNIFICANT PATHOLOGIC CALCIFICATIONS: None. OTHER: No free air is seen under the diaphragm. IMPRESSION: NO ACUTE ABDOMINAL FINDINGS. Reviewed, dictated and finalized at location A.
--- OUTSIDE RECORDS SUMMARY | 2025-01-30 15:44 | XMS_ITS | Data Portability ---
Author Organization 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 [email or web address] Not available 10/06/2024 09:23:09 Plan of Treatment Reminders Order Date Submit Date Provider Last Modified By Organization Details Last Modified Time Details Appointments None recorded . Lab urinalys is, dipstick 2023 024 [email or web address] [facility], [address], [place], [address], 17:21:08 Referral None recorded . Procedures None recorded . Surgeries None recorded . Imaging MAMMO, screenin g, digital, bilatera l 2024 025 [facility], [address], [place], [address], 5 21:46:43 MAMMO, screenin g, bilatera l 2022 023 [email or web address] [place] [address], [address] [address], [place], [address], 14:40:12 Medication Orders Metrogel Vaginal 0.75 % (37.5 mg/5 gram) 2023 025 [facility][id number], [address], [place], [place], [id number], 5 09:24:09 Tri-Spri ntec (28) 0.18 mg(7)/0. 215 mg(7)/0. 25 mg(7)-0. 035 mg tablet [id number] [facility]58359, [address] [place], [place], [id number], 5 14:31:39 fluconaz ole 150 mg tablet 2021 022 [facility] #56079, [address] [place], [place], [id number], 3 13:58:48 nystatin -triamci nolone 100,000 unit/gra m-0.1 % topical ointment 2021 [facility] #10696, [address] [place], [place], [id number], 3 13:58:50 Tri-Prev ifem (28) 0.18 mg(7)/0. 215 mg(7)/0. 25 mg(7)-35 mcg tablet [email or web address] [facility]42000, [address], [place], [place], [id number], 5 14:31:39 Patient TargetsNo targets recorded. Patient [...] consi derat ions. Not Available [facility] (Lab) [address], [place], [address], 12/21/2021 14:59:57 04/27/20 22 04/27/2022 CT/GC AND TRICH OMONA S VAGIN BAILEY (RRNA ), SWAB chlamydia trachomatis, PCR Negati ve negati ve Not Available [facility] [address] [place] [address], [phone], 05/03/2022 18:27:56 04/27/20 22 04/27/2022 CT/GC AND TRICH OMONA S VAGIN BAILEY (RRNA ), SWAB neisseria gonorrhoeae, PCR Negati ve negati ve Not Available [facility] [address] [place] [address], [id number], 05/03/2022 18:27:56 04/27/20 22 04/27/2022 CT/GC AND TRICH OMONA S VAGIN BAILEY (RRNA ), SWAB trichomonas vaginalis ribosomal RNA (rrna) Negati ve negati ve Not Available [facility] [address] [place] [address], [id number], 05/03/2022 18:27:56 04/27/20 22 04/27/2022 VAGIN ITIS/ VAGIN OSIS, DNA PROBE kalpana sp. detection, direct probe Negati ve negati ve Not Available [facility] [address] [place] [address], [id number], 05/03/2022 18:27:57 04/27/20 22 04/27/2022 VAGIN ITIS/ VAGIN OSIS, DNA PROBE gardnerella vag. detection, direct probe Negati ve negati ve Not Available [facility] [address] [place] [address], [id number], 05/03/2022 18:27:57 04/27/20 22 04/27/2022 VAGIN ITIS/ VAGIN OSIS, DNA PROBE trichomonas vag. detection, direct probe Negati ve negati ve Not Available [facility] [address] [place] [address], [id number], 05/03/2022 18:27:57 04/27/20 22 04/27/2022 CULTU RE: HERPE S SIMPL EX VIRUS (HSV) , REFLE X TYPIN G source SWAB Not Available [facility] [address] [place] [address], [id number], 05/03/2022 18:27:57 04/27/20 22 04/27/2022 CULTU RE: HERPE S SIMPL EX VIRUS (HSV) , REFLE X TYPIN G hsv culture, body fluid NOT ISOLAT ED REFER ENCE RANGE : NOT ISOLA GAURAV right labia major a Perfo rming Organ izati on Infor matio n: Site ID: EZ Name: [facility]Justino hols [facility] , Addre ss: [address] [place] [address] Direc tor: Rhea lundy MD,Ph D,FER Not Available [facility] [address] [place] [address], [id number], 05/03/2022 18:27:57 02/05/20 23 02/04/2023 IMAGE GUIDE D PAP AND HPV REGAR DLESS image guided Pap, HPV regardless of Pap result SEE RESULT S BELOW CASE REPOR T: Cytol ogy Gynec ologi tova Repor t Case: [id number] Autho henry brown Provi andi: Arlene Pitts, FILTRATION OPERATOR Colle cted: 02/04 1453 Order ing Locat [...] feng warrezio nted. Not Available [facility] (Lab) [address] [facility], [place], [address], 02/09/2023 09:45:44 02/05/20 23 02/04/2023 TRICH OMONA S VAGIN BAILEY (RRNA ) trichomonas vaginalis ribosomal RNA (rrna) Negati ve negati ve Not Available [facility] (Lab) [address] [place], [address], 02/09/2023 09:45:44 02/05/20 23 02/04/2023 CT/GC (TOSIN) , THINP REP VIAL chlamydia trachomatis, PCR Negati ve negati ve Not Available [facility] (Lab) [address] [place], [address], 02/09/2023 09:45:45 02/05/20 23 02/04/2023 CT/GC (TOSIN) , THINP REP VIAL neisseria gonorrhoeae, PCR Negati ve negati ve Not Available [facility] (Lab) [address], [place], [address], 02/09/2023 09:45:45 03/06/20 24 03/06/2024 urina lysis , dipst ick pH 7 Not Available [place] [address], [place], [address], 03/06/2024 17:20:49 03/06/20 24 03/06/2024 urina lysis , dipst ick Specific [place] 1.000 Not Available [facility] [address], [place], [address], 03/06/2024 17:20:49 01/17/20 25 01/16/2025 MAMMO , scree bere, digit al, bilat eral No observ ation record ed. [facility] [address], [place], [address], 01/18/2025 10:32:28 01/18/20 25 01/16/2025 MAMMO , scree bere, digit al, bilat eral No observ ation record ed. [email or web address] [facility] [address], [place], [address], 01/21/2025 10:54:05 01/29/20 25 01/28/2025 MAMMO , diagn ostic , digit al, bilat eral No observ ation record ed. [facility] [address], [place], [address], 01/28/2025 14:41:35 Result Notes None recorded. 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 16:48:21 Speciali zed medical examinat ion Completed 201411/19/2020 Gynecolog ical Examinati on;Record ed Elsewhere : No Locati on: [facility] So urce: EHR Chron ic: N Practic e ID: 0001 Bill able Time: 09:30:00 AM Melania Chun [facility] 16:48:[address] Concept Completed 201711/19/2020 Encntr for general adult medical exam w/o abnormal findings; Recorded Elsewhere : No Locati on: [facility] So urce: EHR Chron ic: N Practic e ID: 0001 Bill able Time: 02:30:00 PM Melania mora [facility] 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 16:48:44 Primigra kaley [id number] Completed 201011/19/2020 Supervisi on of normal first ;Recorded Elsewhere : No Locati on: [facility] So urce: EHR Chron ic: N Practic e ID: 0001 Bill able Time: 10:15:00 AM Melania Chun [facility] 16:48:31 Pregnanc y test negative [id number] Completed 201411/19/2020 examinati on or test, negative result;Re corded Elsewhere : No Locati on: [facility] So urce: EHR Chron ic: N Practic e ID: 0001 Bill able Time: 09:30:00 AM Melania Chun [facility] 16:48:36 Postpart um care Completed 201111/19/2020 Routine postpartu m follow-up ;Recorded Elsewhere : No Locati on: [facility] So urce: EHR Chron ic: N Practic e ID: 0001 Bill able Time: 10:00:00 [facility] 16:48:39 Malaise and fatigue 346893837 Completed 201011/19/2020 Fatigue And Malaise;P ractice ID: 0001 Melania Chun [facility] 16:48:47 Pregnanc y test positive [id number] Completed 201011/19/2020 Positive Test;Prac alfonso ID: 0001 Melania Chun [facility] 16:48:34 Screenin g for malignan t neoplasm of cervix Completed 201011/19/2020 Pap Smear;Pra ctice ID: 0001 [facility] 16:48:29 Single live from singleto n pregnanc y [id number] Completed 201111/19/2020 Mother with single liveborn; Practice ID: 0001 [facility] 16:48:26 Poor growth affectin g manageme nt [id number] Completed 201111/19/2020 GROWTH POOR SGA;Pract ice ID: 0001 [facility] 16:48:42 Vaginiti s and vulvovag initis Completed 201111/19/2020 Vaginitis and vulvovagi nitis, unspecifi ed;Practi ce ID: 0001 Melania Chun [facility] 16:48:16 Problem Notes None recorded. Procedures Surgical History Date Name Laterality Status Provider Name and Address Organization Details Recorded Time 02/05/20 23 Date of Last Pap Smear completed Marianne Sharpe [facility] 10/06/2024 09:24:20 12/16/19 21 Colposcopy completed Josh Duong MD [address], [place], [address], [facility] 12/15/2020 21:40:44 12/16/[address] [facility] 12/10/2021 22:59:33 12/16/[address] [facility] 12/10/2021 23:00:48 Imaging Results Imaging Date Name Status LastModified by Organiz ation Details LastModified Time 01/16/2025 MAMMO, screening, digital, bilateral completed [id number] [facility] [address], [place], [address], 01/18/2025 10:32:28 01/16/2025 MAMMO, screening, digital, bilateral completed [address] [facility] [address], [place], [address], 01/21/2025 10:54:05 01/28/2025 MAMMO, diagnostic, digital, bilateral completed [facility] [address], [place], [address], 01/28/2025 14:41:35 Procedure Notes None recorded. Medical Equipment None Reported. Allergies No known drug allergies Medications Name Sig Start Date Stop Date Status Note LastModified by Organization Details LastModified Time dicloxaci llin 500 mg capsule take 1 capsule (500MG) by oral route every 6 hours 1 hour before a meal or 2 hours after a meal 05/12 completed Prescrib ed Elsewher e: No Locat ion: [facility] M odify By: gmedical Encount er DateTime : 03/30/20 12 11:38:01 [...] Elsewher e: No Locat ion: Susie villar [facility] odify By: seb Raymundoo unter DateTime [...] Elsewher e: No Locat ion: [facility] odify By: seb Raymundoo unter DateTime [...] Elsewher e: No Locat ion: [facility]ie [facility] odify By: sri [address] ncosidney DateTime : 12/19/19 15 03:33:53 PM Not Available Not Available Not Available Macrobid 100 mg capsule take 1 capsule by oral route with intercou rse prn 10/19 completed Prescrib ed Elsewher e: No Locat ion: [facility]ie [facility] odify By: seb Raymundopuneet untaman DateTime : 08/07/20 19 09:30:00 AM Not Available Not Available Not Available Vitamin tablet take 1 tablet by oral route every day 12/07 completed Prescrib ed Elsewher e: No Locat ion: [facility]ie villar [facility] odify By: cmeelycal Encount er DateTime : 05/10/20 11 10:00:00 [...] Prescrib ed Elsewher e: No [facility] By: checo to DateTime : 12/16/19 12 11:15:00 AM Not Available Not Available Not Available Cleocin 2 % vaginal cream insert 1 applicat orful (100MG) by vaginal route every day at bedtime 03/08 completed Prescrib ed Elsewher e: No Locat ion: [address] [facility] [facility] odify By: checo to DateTime : 02/28/20 12 11:46:04 AM Not Available Not Available Not Available levofloxa pili 500 mg tablet take 1 tablet by oral route every 24 hours 11/19 completed Prescrib ed Elsewher e: No [facility] By: jael Encount er DateTime : 10/24/19 10:06:38 AM Not Available Not Available Not Available Diflucan 200 mg tablet take 1 tablet by oral route on days 1, 4, and 7 11/19 completed Prescrib ed Elsewher e: No [facility] By: jael Sharmat er DateTime : 10/24/19 10:06:38 AM Not Available Not Available Not Available Cephadyn 50 mg-650 mg tablet take 1 tablet by oral route every 4 hours as needed not to exceed 4 tablets per 24hrs 03/08 completed Prescrib ed Elsewher e: Yes Loca tion: [facility] odify By: checo to DateTime : 12/24/19 [...] Prescrib ed Elsewher e: No Locat ion: [facility] odify By: sara Raymundoou nter DateTime : 11/22/19 19 09:22:30 AM Not Available Not Available Not Available TOMOGRAPHIC TECH-PNV-DH A 28 mg iron-1 mg-200 mg capsule take 1 capsule by oral route every day 12/07 completed Prescrib ed Elsewher e: No Locat ion: [facility] odify By: papi Carney er DateTime : 12/07/19 13 11:30:56 AM Not Available Not Available Not Available Microgest in 24 FE 1 mg-20 mcg (24)/75 mg (4) tablet take 1 tablet by oral route every day 11/27 completed Prescrib ed Elsewher e: No Locat ion: [facility] odify By: marybeth martin DateTime : 11/28/19 19 11:30:00 AM Not Available Not Available Not Available Vitals Date Recorded Body height Body mass index (BMI) Body weight Systolic blood pressure Diastolic blood pressure Provider Name and Address Organization Details Last Updated DateTime 12/11/2021 154.94 cm 23.4 kg/m2 90551.45 g 114 mm[Hg] 75 mm[Hg] Melania Chun [facility] 2 12:01:37 Date Recorded Body height Body mass index (BMI) Body weight Systolic blood pressure Diastolic blood pressure Provider Name and Address Organization Details Last Updated DateTime 04/27/2022 154.94 cm 23.5 kg/m2 53144.17 g 109 mm[Hg] 72 mm[Hg] Genie Mendezmario [facility] 2 17:14:20 Date Recorded Body height Body mass index (BMI) Body weight Systolic blood pressure Diastolic blood pressure Provider Name and Address Organization Details Last Updated DateTime 02/04/2023 154.94 cm 23.7 kg/m2 46661.48 g 108 mm[Hg] 64 mm[Hg] Genie Mendezmario [facility] 3 13:58:34 Date Recorded Body weight Systolic blood pressure Diastolic blood pressure Provider Name and Address Organization Details Last Updated DateTime 10/08/2024 08927.26 g 121 mm[Hg] 78 mm[Hg] Marianne Malagonton [facility] 10/08/2024 14:31:26 Social History Question Answer Notes LastModified by Organizat ion Details LastModified Time Tobacco Smoking Status Never Smoker Genie Mendezmario [facility] 02/04/2023 13:58:41 Do You [...] Or The Highest Degree You Have Received? 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 No Information not available 02/04/2023 What is your exercise level? Occasional Information not available 11/19/2020 Mental Status Question Answer Note LastModified by Organization D etails LastModified Time Do you feel stressed (tense, restless, nervous, or anxious, or unable to sleep at night)? [id number] Information not available 11/19/2020 Family History Relationship Description Onset Age of this Age Resolved Age Notes LastModified by Organization Details LastModified Time Mother Asthma [email or web address] Not available 02/04/2023 13:47:34 Unspecified Relation Malignant tumor of breast Not available 2020 16:47:39 Maternal Grandfather Malignant neoplasm of lung Not available 2020 18:49:54 Maternal Grandmother Malignant neoplasm of lung Not available 2020 18:50:12 Maternal Grandmother Malignant neoplasm of liver [email or web address] Not available 2024 14:26:11 Father Neoplasm of brain [email or web address] Not available 2024 14:33:59 Father Leukemia [email or web address] Not availabl e 10/08/2024 14:34:14 Medical History [...] SNOMED-CT Code Diagnosis ICD10 Code Diagnosis Note [id number] Josh Duong MD [place] [address] [address] 11/19/2020 16:26:47 11/20/2020 09:03:35 Gynecologic examination 61524285 Z01.419 This patient is here for her annual exam. A thorough history was taken. A physical exam was performed. Age appropriat e routine health screening was ordered, performed, and discussed. Recommende d testing was ordered. She was asked to follow up in one year. She will be informed of any test results. [id number] Josh Duong MD [facility] [address],[place] [address] 12/15/2020 14:47:10 12/16/2020 00:14:48 Screening procedure 33965879 Z13.9 Dysplasia of cervix 7339 1008 N87.9 colposcopy completed, aceto-whit e area, small, biopsied [id number] Josh Duong MD [facility] [address],[place] [address] 12/11/2021 11:51:21 12/11/2021 12:23:29 Gynecologic examination 98093974 Z01.419 This patient is here for her [...] LGSIL/ PILI 1 Contracept ion care management 363135192 Z30.9 [id number] Josh Doung MD [facility] [address],[place] [address] 05/20/2021 17:22:41 05/21/2021 10:46:36 Urinary tract infectious disease 13732250 N39.0 [id number] MARGARET Vuong [facility] [address],[place] [address] 04/27/2022 17:00:23 05/03/2022 16:42:20 Vaginitis 15468142 N76.0 Suspect yeast on examVagini tis panel [...] discussing vulvar care guidelines Lesion of vulva 41107350 6 N90.89 suspect irritation from scratching [id number] [facility] [address] [address] 02/04/2023 13:47:31 02/04/2023 14:40:11 Gynecologic examination 50263225 Z01.419 Suggested Calcium with Vitamin D 1200-1500m g daily. Patient advised to get an annual flu shot in the fall and she could obtain at [facility] or [facility] clinic. Also to obtain TDap vaccinatio n [...] naRoutine Labs PCPMammo ordered Screening mammography 24 830231 Z12.31 [facility] 485948056 Z30.9 RF sent x 1yrSpouse considerin g vasectomyP atient considerin g tubal ligationWi ll call if interested in consult [id number] JAY TORRES MD [facility] [address] [address] 03/06/2024 16:56:21 03/06/2024 17:21:39 Vaginitis 51988693 N76.0 Urinary symptoms 4749233 08 R39.9 [id number] Josh Duong MD [facility] [address] [address] 10/08/2024 14:24:11 10/08/2024 15:34:22 Gynecologic examination 51650275 Z01.419 Annual gynecologi tova exam performed. Patient [...] scan- n/a Pap smear- UTD (2022 - WNL), will repeat in 2025 per ASCCP guidelines laboratory evaluation - declined STI testing - declined Pt declined - had vasectomy Screening mammography 24 520988 Z12.31 Health Concerns Section Related Observation LastModified by Organization Detai ls LastModified Time None Recorded Concern Status LastModified by Organization Details LastModified Time None Recorded Advance Directives Directive N: Payers Encounter Date Sequence Insurance Name Policy Number Policy Ledbetter Covered Member ID Ledbetter Member ID Guarantor Name 12/11/2021 1 [place] [id number] David Jeffrey [id number] Siomara Jeffrey 04/27/2022 1 [place] [id number] David Jeffrey [id number] Siomaraeri Jeffrey 02/04/2023 1 [employer] - CHOICE (POS II) [id number] David Jeffrey [id number] Siomara Jeffrey 03/06/2024 1 [employer] - OPEN ACCESS PLUS [id number] Esvin Jeffrey [id number] Siomara [place] 10/08/2024 1 [facility] [id number] Esvin Jeffrey [id number] Siomara Jeffrey Notes Date Note Type Note [...] examination; Encourage regular exercise Josh Duong MD [address], [place], [address], [facility] 12/11/2021 12:22:55 04/27/2022 text/html Vulvar itching a nd irritation x 1 weekNo vaginal discharge or odorsNo AUB MARGARET Vuong [address], [place], [address], [facility] 05/03/2022 11:53:16 02/04/2023 text/html Annual GYNReport [...] dysplasia; Needs to schedule mammogram MARGARET Chaudhary- [address], [place], [address], [facility] 02/04/2023 14:26:52 10/08/2024 text/html Annual GYNReport [...] 4 months ago since had vasectomy. ASHLEY PHILLIPS NP [address], [place], [address], [facility] 10/08/2024 15:12:41 OBGyn Episode Ob Episode Information Episode Created Date Number of Fetuses Patient Bloodtype Patient rh Status Prepregnancy Weight lbs Domestic Partner Domestic Partner Phone Father Name Digital Computer Systems Analyst Status 11/20/19 21 1 CLOSED Fetus Data [...] Tubal Sterilization Discharge Date Comments 2 38.1 [facility] Discharge Information Feeding Method Contraceptive Method Maternal HG B and HCT Levels
== END 2025-01-30 15:41 | disposition home or self-care (01) ==
PROVIDERS: PCP Family Medicine; Visit Provider Physician Assistant
DX: M54.9 Dorsalgia, unspecified (principal); R10.9 Unspecified abdominal pain
CPT/HCPCS: 74018